=== PATIENT | female | born 1995 | race Caucasian/White ===

== ENCOUNTER 2018-11-10 17:57 | Emergency (ER) | payer MEDICAID, OTHER ==
[2018-11-10 18:39] VITALS: BP 126/77
--- NOTE | 2018-11-10 18:47 | UC ---
Respiratory Complaint HPI - HPI Summary HPI Summary: 23 yo female with one week hx of worsening nasal congestion/earache and sinus pressure upper teeth and gums hurt no CP or Sob onset f/c, myalgias <48 hours/day - History of Current Complaint Chief Complaint: UCGeneralIllness Stated Complaint: B/L EAR COMPLAINT Time Seen by Provider: 11/10/18 18:34 Hx Obtained From: Patient Hx Last Menstrual Period: 10/20/18 Onset/Duration: Gradual Onset, Lasting Days Timing: Constant Severity Initially: Moderate Severity Currently: Mild Pain Intensity: 7 Pain Scale Used: 0-10 Numeric Character: Cough: Nonproductive Aggravating Factors: Nothing Alleviating Factors: Nothing Associated Signs And Symptoms: Positive: Fever, Chills, Nasal Congestion, Sinus Discomfort - Allergies/Home Medications Allergies/Adverse Reactions: Allergies Allergy/AdvReac Type Severity Reaction Status Date / Time No Known Allergies Allergy Verified 11/10/18 18:39 PMH/Surg Hx/FS Hx/Imm Hx Previously Healthy: Yes - Surgical History Surgical History: Yes Surgery Procedure, Year, and Place: osteochondroma right knee removed - Family History Known Family History: Positive: Cardiac Disease, Hypertension, Diabetes, Other - BREAST CA - Social History Alcohol Use: Occasionally Substance Use Type: None Smoking Status (MU): Never Smoked Tobacco - Immunization History Vaccination Up to Date: Yes Review of Systems All Other Systems Reviewed And Are Negative: Yes Constitutional: Positive: Fever, Chills, Fatigue Skin: Positive: Negative Eyes: Positive: Negative ENT: Positive: Sore Throat, Ear Ache, Nasal Discharge, Sinus Congestion, Sinus Pain/Tenderness Respiratory: Positive: Cough Cardiovascular: Positive: Negative Gastrointestinal: Positive: Negative Genitourinary: Positive: Negative Motor: Positive: Negative Neurovascular: Positive: Negative Musculoskeletal: Positive: Negative Neurological: Positive: Negative Psychological: Positive: Negative Physical Exam Triage Information Reviewed: Yes Appearance: Well-Appearing, No Pain Distress, Well-Nourished Vital Signs: Initial Vital Signs Temp 98.8 F 11/10/18 18:35 Pulse 87 11/10/18 18:35 Resp 18 11/10/18 18:35 BP 126/77 11/10/18 18:35 Pulse Ox 99 11/10/18 18:35 Vital Signs Reviewed: Yes Eyes: Positive: Conjunctiva Clear ENT: Positive: Nasal congestion, Nasal drainage, TM bulging, Sinus tenderness, Uvula midline. Negative: Hearing grossly normal, TM red, Muffled voice, Hoarse voice, Dental tenderness Dental Exam: Normal Neck exam: Normal Neck: Positive: Supple, Nontender, No Lymphadenopathy Respiratory: Positive: Lungs clear, Normal breath sounds, No respiratory distress, No accessory muscle use Cardiovascular: Positive: RRR, No Murmur Musculoskeletal: Positive: ROM Intact, No Edema Neurological: Positive: Alert Psychological Exam: Normal Skin Exam: Normal UC Diagnostic Evaluation - Laboratory O2 Sat by Pulse Oximetry: 99 - normal/not hypoxic Diagnostic Studies Comment: influenza A + Respiratory Course/Dx - Differential Dx/Diagnosis Provider Diagnosis: Influenza A, Bilateral serous otitis media Discharge - Sign-Out/Discharge Documenting (check all that apply): Patient Departure All imaging exams completed and their final reports reviewed: No Studies - Discharge Plan Condition: Stable Disposition: HOME Prescriptions: Oseltamivir CAP* [Tamiflu CAP*] 75 mg PO BID #10 cap Patient Education Materials: Influenza (ED), Serous Otitis Media (ED) Forms: *School Release, *Work Release Referrals: No Primary Care Phys,NOPCP [Primary Care Provider] - Additional Instructions: recheck in 5 days if not better continue flonase rest fluids tylenol or advil - Billing Disposition and Condition Condition: STABLE Disposition: Home
[2018-11-10 18:57] LABS: Influenza A Molecular POSITIVE (Negative)
== END 2018-11-10 19:24 | disposition home or self-care (01) ==
LOC: UCCORT 17:57
DX: J10.1 Influenza due to other identified influenza virus with other respiratory manifestations (principal); H65.93 Unspecified nonsuppurative otitis media, bilateral
CPT/HCPCS: 99212; G0463